=== PATIENT | male | born 1935 | race Caucasian/White ===

== ENCOUNTER 2016-12-05 19:03 | Day surgery (SDC) | payer MEDICARE ==
[~2016-12-05] VITALS: Ht 175.3 cm; Wt 71.7 kg
[~2016-12-05 19:03] MED LIST: ASPIRIN EC81 MG PO; BACTRIM DS TAB1 EACH PO; CEPHALEXIN500 MG PO; NORCO 5-325 TA1 EACH PO; PRILOSEC20 MG PO; ST. JOSEPH ASPI81 M1 PO; ST. JOSEPH ASPI81 MG PO; [UNRECOGNIZED DRUG - OTHER] PO
[2016-12-05] MEDS ORDERED: BENADRYL25 MG PO (19:13)
--- NOTE | 2016-12-05 22:47 | NUR ---
12/05/162246 Celestina Chow 2242 - PT ARRIVED TO PACU. MAINTAINING OWN AIRWAY. PT RESPONDS TO STIMULI
--- NOTE | 2016-12-06 00:59 | NUR ---
PT INSTRUCTIONS GIVEN AND SIGNED BY PT. SON AT BEDSIDE. ALL QUESTIONS AND CONCERNS ANSWERED. IV DC'D WITH CATHETER TIP INTACT, PRESSURE DRESSING APPLIED. PT TOLERATED WELL. PT VOIDED. PT AMBULATING INDEPENDENTLY. PT LEFT WITH SON WITH BELONGINGS IN HAND.
--- NOTE | 2016-12-06 09:57 | OR ---
[facility] [address] [place], [place] [address] Signed UPPER ENDOSCOPY REPORT DATE OF SERVICE: 12/05/2016 PREOPERATIVE DIAGNOSIS: Esophageal foreign body. POSTOPERATIVE DIAGNOSIS: Distal esophageal foreign body. Diffuse moderate gastritis. PROCEDURE: Esophagogastroduodenoscopy with CLOtest and biopsies of the antrum along with foreign body removal. ESTIMATED BLOOD LOSS: None. INDICATIONS: Todd is an 81-year-old gentleman who at least on 2 previous occasions had to have meat removed from his distal esophagus. He tells me I have done it once before. Tonight, they were eating beef stew, and he felt like a piece of beef was stuck in his distal esophagus. He finally came to emergency room for evaluation. I was asked by the ER doctor to come see him in the emergency room. I met with Todd and his son, and of course, we reviewed his current findings and the need for the upper endoscopy. He is quite familiar with the whole process. He understands there is a risk, including, but not limited to, gas bloating, crampy abdominal pain, bleeding and perforation requiring surgery, and missed diagnosis. He had expressed understanding and wished to proceed. PROCEDURE NOTE: Todd was taken into our endoscopy suite and placed in a supine semi-recumbent position. He was placed under general endotracheal tube anesthesia per our nurse assorter. The adult gastroscope was introduced into the esophagus, and we suctioned out the fluid column, and of course, at the GE junction was what appeared to be a piece of meat. We could not capture it with our basket, so I gave some gentle pressure with the scope, and it went through the GE junction and into the fundus of the stomach. The scope then passed into the stomach. We looked around, and he had moderate diffuse gastritis. I went ahead and took a biopsy of the antrum for CLOtest as well as pathologic review. Upon retroflexion of the scope, there was enough fluid around the GE junction. I really could not see it very well, but I could see the foreign body lying in the fundus. We suctioned out as much fluid as we could. The scope was then withdrawn up through the area of the GE junction, which as always was very inflamed, edematous, and was bleeding a little bit after removal of foreign body. The distal esophagus, of course, was irritated as well, the middle and upper esophagus not so much. After this, Electronically Signed By: LEO DODSON MD 12/06/16 0957 PATIENT NAME: TODD KRISHNA OPERATIVE REPORT DATE OF : 37 PHYSICIAN: LEO DODSON MD REPORT #: [id number] REPORT IS CONFIDENTIAL AND NOT TO BE RELEASED WITHOUT AUTHORIZATION [facility] [address] [place], [place] [address] Signed the gas was suctioned out, and the gastroscope removed. Todd tolerated the procedure quite well. RECOMMENDATIONS: I will see Todd back in my office in a week or two for followup. He needs to consider a barium swallow and maybe a repeat upper endoscopy in a few weeks, and he probably should consider either an H2 chris or proton pump inhibitor. MD HOLLAND Johnson/Will /[id number] Electronically Signed By: LEO DODSON MD 12/06/16 0957 PATIENT NAME: TODD KRISHNA OPERATIVE REPORT DATE OF : 37 PHYSICIAN: LEO DODSON MD REPORT #: [id number] REPORT IS CONFIDENTIAL AND NOT TO BE RELEASED WITHOUT AUTHORIZATION
--- NOTE | 2016-12-06 09:57 | HP ---
[facility] [address] [place], [place] [address] Signed DATE OF SERVICE: 12/05/2016 REFERRING PHYSICIANS: Dr. Tacos Bustos. CHIEF COMPLAINT: Esophageal foreign body. HISTORY OF PRESENT ILLNESS: Todd is an 81-year-old gentleman, who was eating beef stew earlier tonight and apparently feels like there was a piece stuck in his distal esophagus. He says when he drinks, the fluid comes back up. Apparently, it has happened to him before. He told me tonight that I helped him with upper endoscopy previously. When his throat would not clear, he came to the emergency room with his family. I was asked to see him as a general surgeon on-call. PAST MEDICAL HISTORY: Some type of abdominal cancer, prostate cancer, leukemia, and abdominal hernia/umbilical hernia. PAST SURGICAL HISTORY: Prostate surgery, cholecystectomy, and upper endoscopy. SOCIAL HISTORY: He does smoke, but he does not drink. He has no primary care provider. He prefers the [facility], Alyssa Muhammad is his daughter at [phone]. FAMILY HISTORY: Not reviewed. REVIEW OF SYSTEMS: I reviewed 10 systems with Todd and I believe with his son. No other major issues uncovered. ALLERGIES: None. MEDICATIONS: Aspirin, vitamin C, Prilosec, and Benadryl. PHYSICAL EXAMINATION: VITAL SIGNS: Blood pressure is 146/70, heart rate is 82, and respiratory rate is 18. His temperature is 98.2. He is 98% on room air. He is 5 feet 9 inches and 72 kg. GENERAL: Todd is an 81-year-old gentleman, who appears his stated age. He is at his ideal body weight. He has no shortness of breath or increased work of breathing. LUNGS: Clear to auscultation bilaterally. Electronically Signed By: LEO DODSON MD 12/06/16 0957 PATIENT NAME: TODD KRISHNA HISTORY AND PHYSICAL DATE OF : 37 PHYSICIAN: LEO DODSON MD REPORT #: [id number] REPORT IS CONFIDENTIAL AND NOT TO BE RELEASED WITHOUT AUTHORIZATION [facility] [address] [place], [place] [address] Signed HEART: Regular rate and rhythm. ABDOMEN: Soft and flat. He clearly has a moderate sized incarcerated umbilical hernia. LABORATORY DATA: Pending. ASSESSMENT AND PLAN: Todd is an 81-year-old gentleman, who presents with an esophageal foreign body. He has been through this previously. We are going to call our crew in including an anesthesia provider and will perform an upper endoscopy and clear any foreign body that we uncover. He has expressed understanding and wishes to proceed. MD HOLLAND Johnson/Modl /[id number] cc: Leo Dodson MD Electronically Signed By: LEO DODSON MD 12/06/16 0957 PATIENT NAME: TODD KRISHNA HISTORY AND PHYSICAL DATE OF : 37 PHYSICIAN: LEO DODSON MD REPORT #: [id number] REPORT IS CONFIDENTIAL AND NOT TO BE RELEASED WITHOUT AUTHORIZATION
--- NOTE | 2016-12-06 19:00 | EKG ---
[facility] [address] [facility] [place], [place] [address] Signed Sinus rhythm with 1st degree AV block with frequent premature ventricular complexes Inferior infarct , age undetermined Abnormal ECG No previous ECGs available Confirmed by GRUPO LOZANO MD ([id number]) on 12/06/2016 7:00:11 PM Electronically Signed By: GRUPO LOZANO MD 12/06/16 1900 PATIENT NAME: TODD KRISHNAMaryam Electrocardiogram DATE OF : 37 PHYSICIAN: GRUPO LOZANO MD REPORT #: [id number] REPORT IS CONFIDENTIAL AND NOT TO BE RELEASED WITHOUT AUTHORIZATION
== END 2016-12-06 00:50 | disposition home or self-care (01) ==
LOC: ED 19:03 → DS 19:05 → DSVR 19:05 → DS 12-06 00:50
PROVIDERS: Colon & Rectal Surgery
PROC: 0DB68ZX Excision of Stomach, Via Natural or Artificial Opening Endoscopic, Diagnostic (ICD-10-PCS; 2016-12-05)
PROC: 0DC58ZZ Extirpation of Matter from Esophagus, Via Natural or Artificial Opening Endoscopic (ICD-10-PCS; principal; 2016-12-05 22:45)
DX: K29.50 Unspecified chronic gastritis without bleeding (principal); T18.128A Food in esophagus causing other injury, initial encounter; F17.210 Nicotine dependence, cigarettes, uncomplicated; Z85.46 Personal history of malignant neoplasm of prostate; Z85.6 Personal history of leukemia; Z90.49 Acquired absence of other specified parts of digestive tract; Z98.890 Other specified postprocedural states; Z79.899 Other long term (current) drug therapy; Z79.82 Long term (current) use of aspirin
CPT/HCPCS: 00740; 80053; 85025; 86677; 88305; 88342; 93005; 93010; 96361; 96372; 96374; 99285; J0330; J1200; J1610; J2704; J7030; J7120

== ENCOUNTER 2022-05-12 00:35 | Inpatient (IN) | payer MEDICARE ==
[~2022-05-12] VITALS: Ht 175.3 cm; Wt 66.5 kg
[~2022-05-12 00:35] MED LIST changes: +ACEROLA C500 MG PO; +BENADRYL25 MG PO; +PRILOSEC OTC20 MG PO; -PRILOSEC20 MG PO; -[UNRECOGNIZED DRUG - OTHER] PO
--- NOTE | 2022-05-12 04:45 | NUR ---
PT ARRIVES TO UNIT FROM ED. PT IS NONVERBAL ATT. RESPIRATIONS EVEN AND IRREGULAR. SPO2 92-97% ON 3L NC. CROCKETT CATHETER INTACT AND DRAINING. PT PULLED IV TO R AC. FAMILY AT BEDSIDE.
--- NOTE | 2022-05-12 06:24 | NUR ---
ROUNDED ON PT. PT FAMILY REMAINS AT BEDSIDE. READJUSTED PT IN BED. CROCKETT BAG EMPTYIED. CALL LIGHT WITHIN REACH.
--- NOTE | 2022-05-12 07:30 | NUR ---
ASSUMING CARE OF PT. RECEIVED REPORT FROM BRADLEY MALIK. PT SITTING UP IN BED WITH SON AT BEDSIDE. CALL LIGHT WITHIN REACH AND BEDRAIL AND BED ALARM ON FOR SAFETY. PT MOUTH DRY BUT REFUSES ORAL CARE AT THIS TIME. PT UNWILLING TO ALLOW FOR PUPIL ASSESSMENT, GRABBING RN ARM LIGHT IS BROUGHT FORWARD. PT SON STATES PT "HATES HOSPITALS AND STAFF AND PROBABLY WONT LISTEN".
--- NOTE | 2022-05-12 08:22 | NUR ---
ATTEMPTED NIH SCALE ON PT DR VEGA DISCUSSED POTENTIAL STROKE WITH FAMILY. PT HAS EXPRESSIVE APHASIA. PT ABLE TO MOVE ALL FOUR EXTREMITIES INDEPENDTLY AND SITTING UP IN BED BY HIMSELF WITH SATURATION ON ROOM AIR AND VS WNL. PT LUNG SOUNDS DIM. BOWEL SOUNDS ACTIVE. PT UNABLE TO FOLLOW INSTRUCTIONS TO DRINK WATER OR USE MOUTH SWAB FOR DRY MOUTH, GRABBING NURSES HAND MOUTH SWAB OFFERED. PT UNABLE TO FOLLOW INSTRUCTIONS TO COMPLETE NIH. AWARE.
--- NOTE | 2022-05-12 08:55 | NUR ---
UNABLE TO COMPLETE BMAT ASSESSMENT PT IS UNABLE TO FOLLOW INSTRUCTIONS.
--- NOTE | 2022-05-12 09:19 | NUR ---
PT RESTING IN BED WITH CALL LIGHT WITHIN REACH, BED ALARM AND RAILING UP FOR SAFETY. ABX STOPPED AND IV SALINE LOCKED. ENCOURAGED PT TO DRINK WATER, PT DECLINED. ADMISSION ORDERS PLACED BY DR VEGA.
--- NOTE | 2022-05-12 10:24 | NUR ---
PT REMOVED PULSE OXIMETER. THIS RN IN ROOM, REPLACED OXIMETER AND INFORMED PT OF IMPORTANCE OF LEAVING IN PLACE.
--- NOTE | 2022-05-12 11:20 | NUR ---
MED REC COMPLETE
--- NOTE | 2022-05-12 12:07 | NUR ---
LUNCH BROUGHT IN TO PT. PT LEANING FORWARD, ASLEEP. ATTEMPTED TO WAKE PT AND HAVE HIM SIT UP BUT PT GOANED AND PUSHED AGAINST THIS RN TO REMAIN IN LEANING POSITION. PT SON REPORTS PT DOES NOT WAKE WELL "WHEN NAPPING". FOOD LEFT AT BEDSIDE, WILL REATTEMPT TO WAKE PT AND REPOSITION SHORTLY.
--- NOTE | 2022-05-12 12:21 | NUR ---
PT ROCKING BACK AND FORTH IN BED. PT SON JONATHAN ASKED IF THE MOEVEMENTS ARE NORMAL OR IF THIS IS SOMETHING NEW. PT SON STATES PT DOES SAME MOVEMENTS AT HOME WHILE SITTING IN CHAIR OR BED AT HOME WHILE LEANING FORWARD. ATTEMPTED TO ASSIST PT IN SEATED POSITION TO EAT AND PT PUSHED AGAINST RN HANDS TO REMAIN IN LEANING POSITION. WILL ATTEMPT AGAIN.
--- NOTE | 2022-05-12 13:28 | NUR ---
ATTEMPTED TO GIVE PT ORAL ASA. PT SHAKING HEAD BACK AND FORTH, GRABBING AT NURSES HANDS TRYING TO SQUEEZE ARMS AND HIT AT STAFF. PT REFUSING WATER AND APPLESAUCE, UNABLE TO GET PT TO TAKE ANYTHING ORALLY AT THIS TIME. PT SITTING UP IN BED LOOKING AROUND. PT CONTINUES TO HAVE EXPRESSIVE APHASIA WHEN SPEAKING. AT TIMES, PT JUST MAKING NOISES OR NOT RESPONDING TO STAFF DIRECTIONS/ QUESTIONS AT ALL.
--- NOTE | 2022-05-12 14:22 | NUR ---
PT SITTING UP IN BED IN ROOM. PT HAD 21 BEATS OF V-TACH. BLOOD PRESSURE WITHIN NORMAL LIMITS. PT UNAWARE OF ARRYTHMIA, JUST STATING "YEAH" TO ANY QUESTION ASKED, CONTINUES TO HAVE EXPRESSIVE APHASIA. SON AT BEDSIDE.
--- NOTE | 2022-05-12 14:47 | NUR ---
ST EVALUATION DEFERRED AT THIS TIME, PER NSG REQUEST. EVALUATION TO BE COMPLETED WHEN PATIENT IS ABLE TO TOLERATE ASSESSMENT.
--- NOTE | 2022-05-12 14:55 | NUR ---
REPORT GIVEN TO SRINATH MALIK.
--- NOTE | 2022-05-12 15:10 | NUR ---
PT BOUGHT TO [employer], RM 110. SON AT BEDSIDE. EXPLAINED USE OF CALL LIGHT TO BOTH SON AND PT, WITHIN REACH.
--- NOTE | 2022-05-12 16:00 | NUR ---
In and spoke with pts son, Diego. Pt is awake and attempts to speak. He asks if I am ok. Son states they live in a house with a ramp. Pt does not take any medication other than asa. He does not use any DME. He is retired with SSI and a pension. Son is disabled and on dialysis and his sister is amputee. Both live with their dad.l Son states they grocery shop. Pt can leave the home and drive, but does not choose to do so. He does not see DrPolos or have a pcp and does not want one. Son states if I schedule him with a DR. he will not go. They deny any needs at this time.
--- NOTE | 2022-05-12 16:15 | NUR ---
ASSESSMENT COMPLETE. PT BECOMES COMBATIVE WITH MOVEMENT. MARSHALL, BUT HEARS BETTER WITH LEFT EAR. UNABLE TO ASSESS CMS. PT IS ALERT. PT WAS ABLE TO ASK "ARE YOU ALRIGHT? IS EVERYTHING ALRIGHT?" AND WOULD CONTIUNE TO THANK THIS RN. LUNGS SOUNDS DIMINISHED IN ALL. REDDENED COCCYX, ALLYVN PLACED. SON AT BEDSIDE. CALL LIGHT WITHIN REACH. BED ALARM ON.
--- NOTE | 2022-05-12 17:40 | NUR ---
pt laying in bed, awake. call light within reach. bed alarm on.
--- NOTE | 2022-05-12 17:55 | NUR ---
PT RESTING IN BED, AWAKE. ATTEMPTED ORAL CARE, PT MOVES HEAD AND SAYS "NO". PT CONTINOUSLY SAYING "I LOVE YOU". CALL LIGHT WITHIN REACH. BED ALARM ON.
--- NOTE | 2022-05-12 18:44 | EKG ---
[facility] [address] [place] [address] Signed Poor data quality, interpretation may be adversely affected Undetermined rhythm Inferior infarct , possibly acute T wave abnormality, consider lateral ischemia ACUTE ID / STEMI Consider right ventricular involvement in acute inferior infarct Abnormal ECG Repeat EKG performed Confirmed by Zoe Vega MD () on 05/12/2022 6:43:56 PM Electronically Signed By: ZOE VEGA MD 05/12/22 1844 PATIENT NAME: TODD KRISHNA Electrocardiogram DATE OF : 37 PHYSICIAN: ZOE VEGA MD REPORT #: [id number] REPORT IS CONFIDENTIAL AND NOT TO BE RELEASED WITHOUT AUTHORIZATION
--- NOTE | 2022-05-12 18:45 | EKG ---
[facility] [address] [facility] [place] [address] Signed Sinus arrhythmia with premature ventricular or aberrantly conducted complexes Nonspecific intraventricular block Inferior infarct , age undetermined Abnormal ECG Confirmed by Zoe Vega MD () on 05/12/2022 6:45:46 PM Electronically Signed By: ZOE VEGA MD 05/12/22 1845 PATIENT NAME: TODD KRISHNA Electrocardiogram DATE OF : 37 PHYSICIAN: ZOE VEGA MD REPORT #: [id number] REPORT IS CONFIDENTIAL AND NOT TO BE RELEASED WITHOUT AUTHORIZATION
--- NOTE | 2022-05-12 19:25 | NUR ---
REPORT RECEIVED FROM HELENA NESS. PT SITTING UP IN BED. RR EVEN AND UNLABORED. NO NEEDS IDENTIFIED AT THIS TIME. CALL LIGHT IN REACH. BED ALARM ON.
--- NOTE | 2022-05-12 21:20 | NUR ---
IN ROOM HELENA MILLER INFORMED THIS RN THAT THE PT HAS PULLED OUT ONE OF HIS IVs. IV IN RIGHT FOREARM WAS PULLED OUT BY PT. LEFT WRIST IV CLAVE IS RIPPED OFF. HELENA GUARDADO IN TO ASSIST WITH LEFT WRIST IV. LEFT WRIST IV INFILTRATED. IV REMOVED. PT PULLING HANDS AWAY FROM HELENA GUARDADO WHILE ATTEMPTING TO REMOVE TAPE FROM PTs ARM. ASSESSMENT COMPLETE. LUNG SOUNDS CRACKLES IN DAE AND LLL. CRACKLES IN RLL. CLEAR IN RUL. HEART TONES DISTANT. BOWEL TONES ACTIVE. PT SITTING UP IN BED WITH EYES CLOSED. RR EVEN, BUT LABORED. HELENA MILLER NOTIFIED THIS RN THAT HELENA MILLER CALLED DR. VEGA TO NOTIFY OF PT PULLING IV. VITALS COMPLETE. NO OTHER NEEDS FROM THIS RN AT THIS TIME. AWAITING NEW ORDERS.
--- NOTE | 2022-05-12 22:00 | NUR ---
pt SEEN IN BED, AWAKE AND ATTEMPTING TO GET OOB. BED ALARM REMAINS ON. pt PULLED IV. REMAINS RESTLESS AND AGITATED IN BED. PRIMARY RN ALLYSON MADE AWARE AND NOW IN ROOM TO ATTEMPT TO REORIENT AND ASSESS pt. THIS RN CALLED DR VEGA AND UPDATED HIM ON pt STATUS. DR VEGA TO PLACE ORDERS FOR BOTH ORAL AND IM MEDICATION TO AID IN AGITATION. PER MD, TRY ORAL SEROQUEL FIRST. pt NPO, DISCUSSED WITH MD. PER SILVIA, SPEECH THERAPY TO COME AND ASSESS pt BUT WAS UNABLE TO GET DONE TODAY. PER SILVIA, OKAY TO ATTEMPT BESIDE SWALLOW EVAL AND PROCEED WITH ORAL SEROQUEL. IF SEROQUEL UNEFFECTIVE OR pt REFUSES OKAY TO PROCEED WITH HALDOL OPTION, SILVIA TO PLACE ORDERS. WILL ATTEMPT TO PLACE NEW IV BY BUSINESS INFO CONSULTANT ONCE pt SETTLES DOWN AND IS CALMER. WILL CONTINUE TO MONITOR. PRIMARY HELENA VALADEZ AND HELENA GUARDADO IN ROOM TO COMPLETE BEDSIDE SWALLOW EVAL AND GIVE MEDS-SEE EMAR.
--- NOTE | 2022-05-12 22:15 | NUR ---
DR ORDERED PO MEDICATION, NUCLEAR MEDICINE SPECIALIST CONFIRMED WITH DR ON PHONE AFTER PT PULLED OUT HIS IV OK TO ATTEMPT CAREFULLY PO MEDS WITH THICKENED PUDDING. THIS RN PROVIDED SM SPOONFULL OF PUDDING PT SMALLOWED WELL, 2ND SPOONFUL WITH MED PT SET IN HIM MOUTH AND REFUSED TO SWALLOW INSPITE OF HEAD TILT, CHIN TUCK AND FACIAL MASSAGE. FINALLY PT SWALLOWED MEDS THAT WERE CRUSHED IN SPOONFUL OF PUDDING. PT CONTINUE TO REFUSED TO SWALLOW, MOUTH AT BASELINE CRUSTED, DRY AND CRACKED - ATTEMPTED ORAL CARE WITH KIT AND PT REFUSED, POOR SWALLOW, AND POOLS SALIVA - CONT. NPO STATUS - DISCUSSED WITH NUCLEAR MEDICINE SPECIALIST. PT IS MOUTH BREATHER, DTG CALLED EARLIER AND TALKED WITH THIS RN AND STATED THAT HE IS MENTALLY AT BASELINE - HAS KNOWN DEMENTIA, AND HIS SPEECH IS AT BASELINE - THAT THEY ARE USED TO HIS MUMBLES AND GRUMBLES. DTG REPORTS THAT HE HAS REFUSED ORAL CARE AT HOME FOR YEARS, AND LIKES TO DRINK A&W SODA. ATTEMPTED TO ORAL SUCTION PT FOR SAFETY AND HE FOUGHT AND REFUSED - HOB UP 90 DEGREES AT ALL TIMES,
--- NOTE | 2022-05-12 22:25 | NUR ---
IN WITH HELENA GUARDADO TO ADMINISTER MEDICATION, SEE MAR. GUARDADO, TO PERFORM SWALLOW EVAL. SEE HELENA GUARDADO NOTE. WHILE HELENA GUARDADO ATTEMPTS TO PERFORM ORAL CARE PT STARTS THROWING HANDS AROUND AND YELLING "NO." NO ORAL CARE WAS ABLE TO BE PERFORMED. PT SITTING UP IN HIGH FOWLERS WITH BED ALARM ON. CALL LIGHT IN REACH.
--- NOTE | 2022-05-13 00:45 | NUR ---
WITH HELP FROM RN REMY, PRIMARY RN ALLYSON, HELENA GUARDADO, AND SPECIALIZED LANGUAGE INSTRUCTOR ANNELISE, NEW IV PLACED BY VENDING TECHNICIAN ANNELISE. pt TOLERATED POORLY AND REQUIRED DISTRATION AND BOTH ORAL AND IM AGITATION MEDICATION. NEW IV NOW IN PLACE, 20G TO BACK OF LEFT FOREARM. IV ABX INFUSING DIRECTED. BED ALARM RESUMED AND CALL LIGHT IN REACH. pt REMAINS DISORIENTED AND INTERMITTENTLY ATTEMPTS TO GET OOB. WILL CONTINUE TO MONITOR, pt REMAINS IN VIEW OF RN STATION.
--- NOTE | 2022-05-13 01:42 | NUR ---
IN TO ADMINISTER MEDICATION, SEE MAR. PAUL RN AND HELENA PULIDO IN ROOM TO ASSIST. PT CONTINUES TO REACH FOR IV SITE. IV SITE WRAPPED WITH COBAN TO PREVENT PT FROM PULLING AT IV. PT CONTINUES TO REACH FOR IV. IV INFILTRATED. IV REMOVED AND PRESSURE APPLIED TO AREA. PT REACHES FOR CROCKETT CATHETER. REDIRECTED PTs HANDS. PT RESTS WITH HANDS OVER CHEST AND THEN AGAIN REACHES FOR CROCKETT CATHETER. THIS RN LEAVES ROOM TO CALL TELE-PHARMACY. HELENA MILLER AND HELENA PULIDO STILL IN ROOM.
--- NOTE | 2022-05-13 01:58 | NUR ---
pt REMAINS AWAKE AND RESTLESS IN BED, NOTIFIED BY PRIMARY HELENA VALADEZ THAT pt PULLED ON CROCKETT, STAT LOCK PULLED OFF. PER PRIMARY RN, CROCKETT REMAINS WNL. UPDATED DR VEGA ABOUT pt's CONTINUED RESTLESSNESS AND AGITATION, TELEPHONE ORDER READ BACK FOR 1MG IV ATIVAN [id number]. PRIMARY HELENA VALADEZ NOW IN ROOM FOR MED ADMINISTRATION-SEE EMAR. DR VEGA ALSO UPDATED ON MEDS GIVEN FOR AGITATION AND OF NEW IV. WILL CONTINUE TO MONITOR.
--- NOTE | 2022-05-13 03:05 | NUR ---
THIS RN CALLED TELE-PHARMACY ABOUT PTs INFILTRATED IV. TELE-PHARMACY STATES TO "APPLY COLD PACK FOR 10-20 MINUTES 4 TIMES A DAY FOR 3 DAYS OR UNTIL SYMPTOMS RESOLVE." VERIFIED WITH REPEAT BACK.
--- NOTE | 2022-05-13 03:05 | NUR ---
pt REMAINS RESTLESS AND VERY AGITATED TO BUSINESS SERVICES TECH. STAFF ATTEMPT TO ALLOW pt TO REST BUT SOON AFTER LEAVING pt ROOM, pt BEGINS TO MESS WITH CROCKETT CATHETER, FOR pt SAFETY, pt HAS BEEN 1:1 TO ENSURE CATHTER REMAINS IN PLACE. MULTIPLE ATTEMPTS TO REDIRECT AND DISTRACT pt UNSUCCESSFUL. pt ATTEMPTS TO SWAT AT AND HIT STAFF WHEN IN REACH OF pt. pt THEN PULLED OFF GOWN AND TELEMETERY. CCU AWARE. pt CONTINUES TO MUMBLE AND YELL VIA GARBLED SPEECH TO BUSINESS SERVICES TECH. PRIMARY RN ALLYSON ON PHONE WITH DR VEGA DISCUSSING POC.
--- NOTE | 2022-05-13 03:06 | NUR ---
HELENA MILLER IN ROOM. THIS RN ATTEMPTED TO PLACE COLD PACK TO INFILTRATED SITE. PT REMOVES COLD PACK. PT REMOVES GOWN AND PULLS TELE LEADS OFF. PT CONTINUES TO REACH FOR CROCKETT CATHETER. HELENA MILLER OUT OF ROOM. PT CONTINUES TO REACH FOR CROCKETT CATHETER. REDIRECTED PTs HAND TO CHEST. KAREN GOMEZ IN TO SIT 1:1 WITH PT AND REDIRECT PTs HAND NEEDED.
--- NOTE | 2022-05-13 03:06 | NUR ---
ASSESSMENT COMPLETE. LUNG SOUNDS CLEAR IN RUL. CRACKLES IN RLL, LLL, AND DAE. BOWEL TONES ACTIVE. LUMP NOTED TO UMBILICUS WITH HERNIA LIKE APPERANCE. PT RESTING IN BED WITH EYES CLOSED WITH HANDS FOLDED OVER CHEST. PT REMOVED GOWN. NO OTHER NEEDS IDENTIFIED AT THIS TIME. CALL LIGHT IN REACH. BED ALARM ON.
--- NOTE | 2022-05-13 03:08 | NUR ---
THIS RN CALLED DR. VEGA TO UPDATE ON PTs IV INFILTRATING, REACHING FOR CROCKETT CATHETER, AND REMOVING TELE LEADS. NEW ORDERS RECEIVED VERIFIED WITH READ BACK.
--- NOTE | 2022-05-13 03:16 | NUR ---
BON Juárez AT THIS TIME. PT RESTING IN BED. KAREN GOMEZ 1:1 WITH PT UNTIL PT RESTS. NO OTHER NEEDS FROM THIS RN AT THIS TIME. CALL LIGHT IN REACH. BED ALARM ON.
--- NOTE | 2022-05-13 03:32 | NUR ---
at pt bedside for some time after rn discountinued palacios cath, pt remaining in bed at this time, mumbling to self, reaching in to the air, bed alarm set
--- NOTE | 2022-05-13 04:24 | NUR ---
ROUNDED ON pt, pt RESTING IN BED WITH EYES CLOSED. ASPIRATION PRECAUTIONS IN PLACE AND BED ALARM REMAINS ON FOR SAFETY, CALL LIGHT IN REACH. EYES CLOSED, pt ON RA. RR EVEN AND UNLABORED, NO DISTRESS NOTED. pt APPEARS CALM AND RELAXED. WILL CONTINUE TO MONITOR.
--- NOTE | 2022-05-13 06:30 | NUR ---
pt resting quietly in bed, eyes closed. on ra. rr even and unlabored, no distress noted. lab to return in 1-1.5hr to complete am labs as to allow pt to rest at this time, pt had stressful night and was heavily agitated during the shift. currently calm, bed alarm remains on for safety. call light in reach.
--- NOTE | 2022-05-13 06:47 | NUR ---
IN TO ROUND ON PT. PER HELENA MILLER TO NOT GET BP, SPOT CHECK AND GET TEMPERATURE TO LET PT REST. TEMPERATURE, O2 SATS, RESPIRATIONS AND PULSE COMPLETE. PT INCONTINENT OF STOOL. KAREN GOMEZ IN TO ASSIST WITH NAOMIE CARE. NEW ATTENDS IN PLACE. NEW LINENS PLACED. PT CONTINUES TO GRAB AND SQUEEZE WHEN ASSISTING WITH CARES. PT NOW RESTING IN BED ON RIGHT SIDE. RR EVEN, BUT LABORED. NEW GOWN PLACED, WARM BLANKET PROVIDED. NO OTHER NEEDS IDENTIFIED AT THIS TIME. CALL LIGHT IN REACH. BED ALARM ON.
--- NOTE | 2022-05-13 07:00 | NUR ---
REC'D BEDSIDE REPORT FROM NIGHT NURSE. PT. SLEEPING. EASY TO AROUSE. NAD, NO C/O. WILL SPEAK TO ATTENDING REGARDING PT REFUSAL OF ALL INTERVENTIONS ON DIRECT SUPPORT PROFESSIONAL HOME HEALTH, REPORTED BY NIGHT PRIMARY NURSE AND CHARGE NURSE. WILL CONTINUE TO MONITOR AND FOLLOW POC.
--- NOTE | 2022-05-13 18:36 | NUR ---
PT BROKE EXTENSION TUBING ON IV. REPLACED TUBING AND DRESSING. COVERED IV AREA WITH COBAN. PT AGREED NOT TO BOTHER IV. BED LINENS CHANGED. SON AND GRANDSON AT BEDSIDE FOR THE AFTERNOON. PT PASSED BEDSIDE SWALLOW STUDY AND PROVIDER REORDERED PATIENT'S DIET. ORDERED DINNER BUT PT APPETITE IS STILL LOW. PT STILL WITH INCONINENCE, BUT ALSO VERBALIZING NEED TO VOID. WILL CONTINUE TO FOLLOW POC.
--- NOTE | 2022-05-13 19:00 | NUR ---
REPORT RECEIVED FROM HELENA PHILLIPS. PT SITTING UP IN BED. RR EVEN AND UNLABORED. NO NEEDS IDENTIFIED AT THIS TIME. CALL LIGHT IN REACH. BED ALARM ON.
--- NOTE | 2022-05-13 20:15 | NUR ---
BED ALARM SET OFF, PT GETTING OOB, PT UNABLE TO CLARIFY NEEDS, STOOD PT AT BEDSIDE, 1PA FWW, OFFER URINAL, PT DID NOT WANT TO USE WANT URINAL, PT GOT BACK IN BED, WANTED COVERS, PROVIDED, BED ALARM RESUMED, IV PUMP ALARMING, RN INFORMED
--- NOTE | 2022-05-13 21:03 | NUR ---
IN TO ADMINISTER MEDICATIONS, SEE MAR. IV FLUSHED WNL. PT COMPLAINS OF HEADACHE AND POINTS TO FRONT AND LEFT SIDE OF HEAD, PRN TYLENOL ADMINISTERED, SEE MAR. ASSESSMENT COMPLETE. LUNG SOUNDS COARS CRACKLES IN DAE, LLL AND RLL. CLEAR RUL. BOWEL TONES ACTIVE. HEART TONES DISTANT. NO OTHER NEEDS IDENTIFIED AT THIS TIME. CALL LIGHT IN REACH. BED ALARM ON.
--- NOTE | 2022-05-13 21:52 | NUR ---
IN TO ADMINISTER MEDICATION, SEE MAR. IV FLUSHES WNL. IV INFUSING WNL. PT SITTING UP IN BED. RR EVEN AND UNLABORED. NO OTHER NEEDS IDENTIFIED AT THIS TIME. CALL LIGHT IN REACH. BED ALARM ON.
--- NOTE | 2022-05-13 22:20 | NUR ---
BED ALARM SET OFF, PT SITTING UP IN BED, ASKED IF PT NEEDS ANYTHING, NO NEEDS STATED, PT ASKING IF THIS LAN ENGINEER WAS OKAY, ALARM REMAINS IN PLACE
--- NOTE | 2022-05-14 00:05 | NUR ---
IN TO ROUND ON PT. PT SITTING UP IN BED. RR EVEN AND UNLABORED. IV INFUSING WNL. PT LAYING IN SEMI FOWLERS AND COVERED WITH BLANKETS. NO OTHER NEEDS IDENTIFIED AT THIS TIME. CALL LIGHT IN REACH. BED ALARM ON.
--- NOTE | 2022-05-14 01:53 | NUR ---
ASSESSMENT COMPLETE. LUNG SOUNDS EXPIRATORY WHEEZE IN RUL, RLL, DAE AND LLL. DIMINISHED IN LLL AND RLL. BOWEL TONES ACTIVE. BM NOTED, PT INCONTINENT OF URINE. KAREN GOMEZ IN TO ASSIST WITH NAOMIE CARE. NEW ATTENDS IN PLACE. GOWN PLACED BACK ON PT PT HAS TAKEN GOWN OFF PREVIOUSLY. IV INFUSING WNL. NO OTHER NEEDS IDENTIFIED AT THIS TIME. CALL LIGHT IN REACH. BED ALARM ON.
--- NOTE | 2022-05-14 04:10 | NUR ---
IN ROOM TO ROUND ON PT. PT SITTING UP IN BED. COUGHING NOTED. PT STATES "CAN YOU TURN THAT OFF" POINTING AT THE TELEVISION. TELEVISION TURNED OFF. PT THANKS THIS RN FOR TURNING OFF TELEVISION. STAT LOCK REMOVED FROM RIGHT THIGH. PT REPORTS NO OTHER NEEDS AT THIS TIME. CALL LIGHT IN REACH. BED ALARM ON.
--- NOTE | 2022-05-14 05:30 | NUR ---
IN KAREN GOMEZ IN ROOM WITH PT. KAREN GOMEZ REQUESTING ASSISTANCE WITH PERICARE AND LINEN CHANGE. PT INSISTANT ON STANDING WITH FWW WHILE LINENS ARE CHANGED. PT STANDING WITH FWW HAS A SLIGHT WOBBLE. THIS RN STANDING WITH PT WHILE KAREN GOMEZ CHANGING LINENS. PT ATTENDS CHANGED. PT SITTING BACK IN BED. LAB IN TO DRAW BLOOD. PT TOLERATED WELL. VITALS AND I&Os COMPLETE. NO OTHER NEEDS IDENTIFIED AT THIS TIME. CALL LIGHT IN REACH. BED ALARM ON. GOWN PLACED BACK ON PT PT REMOVED GOWN PREVIOUSLY.
--- NOTE | 2022-05-14 07:18 | NUR ---
REPORT RECEIVED FROM ALLYSON MALIK, ALL QUESTIONS ANSWERED. PT SITTING UP IN BED, DENIES NEEDS AT THIS TIME. CALL LIGHT IN REACH, BED ALARM ON.
--- NOTE | 2022-05-14 07:37 | NUR ---
PT AWAKE IN BED. KLEENEX GIVEN. WARM CLOTH FOR FACE, WHITE BOARD UPDATED. NO FURTHER NEEDS AT THIS TIME. CALL LIGHT IN REACH.
--- NOTE | 2022-05-14 10:27 | NUR ---
MORNING ASSESSMENT COMPLETE. PT SITTING UP IN BED. ANSWERS QUESTIONS APPROPRIATELY, DISORIENTED TO PLACE AND TIME. IV PATENT. DR VEGA INTO TO SEE PT. PT DENIES PAIN OR FURTHER NEEDS AT THIS TIME. CALL LIGHT IN REACH. BED ALARM ON.
--- NOTE | 2022-05-14 13:22 | NUR ---
PT LYING AWAKE IN BED. ENCOURAGED TO DRINK FLUIDS. ASKED PT IF HE HAD OR NEEDED TO URINATED. PT STATES HE "WILL TAKE CARE OF IT" ATTEMPTED TO CHECK BRIEF. PT SWATTED HANDS AT ATTEMPT, UNABLE TO CHECK BRIEF.
--- NOTE | 2022-05-14 14:12 | NUR ---
PT ATTEMPTING TO GET OUT OF BED TO USE RESTROOM. BEDSIDE COMMODE PLACED NEXT TO BED. PT UP ONE PERSON ASSIST WITH FWW TO COMMODE AND BACK TO BED. PT TOLERATED WELL. FOLLOWED INSTRUCTION. INCONTINENT IN BRIEF, CHANGED AND NAOMIE CARE PROVIDE. PT ENCOURAGED TO DRINK FLUIDS. DENIES FURTHER NEEDS. CALL LIGHT IN REACH. BED ALARM ON
--- NOTE | 2022-05-14 19:03 | NUR ---
REPORT RECEIVED FROM HELENA HERNANDEZ. PT RESTING IN BED ON RIGHT SIDE. RR EVEN AND UNLABORED. NO NEEDS IDENTIFIED AT THIS TIME. CALL LIGHT IN REACH. BED ALARM ON.
--- NOTE | 2022-05-14 21:25 | NUR ---
IN TO ADMINISTER MEDICATION, SEE MAR. IV FLUSHED WNL. IV INFUSING WNL. ASSESSMENT COMPLETE. LUNG SOUNDS EXPIRATORY WHEEZE THROUGHOUT ALL LOBES. RHONCHI IN LLL. HEART TONES DISTANT. PT SITTING UP IN BED. RR EVEN, BUT LABORED. PRN MEDICATION ADMINISTERED, SEE MAR. NO OTHER NEEDS IDENTIFIED AT THIS TIME. CALL LIGHT IN REACH. BED ALARM ON.
--- NOTE | 2022-05-14 22:43 | NUR ---
IV ABX COMPLETE. IV FLUSHES WNL. SECOND ABX STARTED, SEE MAR. IV INFUSING WNL. PT RESTING IN BED ON LEFT SIDE. RR EVEN AND UNLABORED. WARM BLANKET PROVIDED. NO OTHER NEEDS IDENTIFIED AT THIS TIME. CALL LIGHT IN REACH. BED ALARM ON.
--- NOTE | 2022-05-15 01:15 | NUR ---
IN ROOM BED ALARM ALARMING, RESOLVED. IV PUMP ALARMING, RESOLVED. PT RESTING ON RIGHT SIDE. BLANKETS PLACED OVER PT. IV INFUSING WNL. NO OTHER NEEDS IDENTIFIED AT THIS TIME. CALL LIGHT IN REACH. BED ALARM ON.
--- NOTE | 2022-05-15 04:30 | NUR ---
PT AGITATED. WANTS TO GET OUT OF BED. NOT REDIRECTABLE. ALSO RR27. O2 99% ON RA. WILL MEDICATE PER MAR.
--- NOTE | 2022-05-15 05:00 | NUR ---
PT IS RELAXED, LAYING IN BED WITH EYES CLOSED. PT RR22. O2 99% ON RA. WILL CONTINUE TO MONITOR AND FOLLOW POC.
--- NOTE | 2022-05-15 06:29 | NUR ---
PT SLEEPING COMFORTABLY IN BED. NO ACUTE EVENTS OVERNIGHT. NO C/O. WILL CONTINUE TO MONITOR AND FOLLOW POC.
--- NOTE | 2022-05-15 07:29 | NUR ---
REPORT FROM [facility].
--- NOTE | 2022-05-15 09:07 | NUR ---
PATIENT ASSESSMENT DONE. PATIENT INCONTINENT OF URINE AND COMBATIVE WHILE BEING CHANGED. PATIENT HAS EYES CLOSED AND WILL NOT OPEN THEM. LUNGS ARE PRIMARILY CLEAR IN UPPER GALEANA, DIM IN THE BASES WITH IN/EX WHEEZE IN RLL. ATTEMPTED TO GIVE MORNING ASPIRIN AND PATIENT SPIT IT OUT. OT IN ROOM AND ATTEMPTING TO WORK WITH PATIENT. BED ALARM TO BE PLACED.
--- NOTE | 2022-05-15 09:11 | NUR ---
MRI CALLED RE: HEAD MRI, THEY KNOW PATIENT IS COMBATIVE.
--- NOTE | 2022-05-15 11:05 | NUR ---
PATIENT IS SLEEPING IN BED, REGULAR RESPIRATIONS NOTED.
--- NOTE | 2022-05-15 12:30 | NUR ---
Attempted to speak with pt. He will not answer or look at this RN. Attempted to call pts son, message states he is unavailable and no way to leave a message. Would like to check with family if they will be able to care for this pt at home.
--- NOTE | 2022-05-15 12:52 | NUR ---
BEFORE I WENT TO LUNCH DONAVON (NURSE) AND I CHANGED HIM AND ALSO CHANGED THE BED LINENS. PUT BED ALARM BACK ON.
--- NOTE | 2022-05-15 14:42 | NUR ---
THE NURSES AND I CHANGED PATIENT'S TAPED ATTEND. ALSO PUT CREAM ON HIS SCROTUM.
--- NOTE | 2022-05-15 15:08 | NUR ---
BED ALARM HIS ON.
--- NOTE | 2022-05-15 18:30 | NUR ---
NURSE AND I CHANGED PATIENT'S TAPED ATTEND.
--- NOTE | 2022-05-15 19:55 | NUR ---
REC'D BEDSIDE REPORT FROM DAY NURSE. PT WITH NAD, NO C/O. RESTING COMFORTABLY IN BED. BED EXIT ALARM ENGAGED. SPOKE WITH PT'S DAUGHTER, RAFI, WHO CALLED FOR AN UPDATE OF PT CONDITION. WILL CONTINUE TO MONITOR AND FOLLOW POC.
--- NOTE | 2022-05-16 07:09 | NUR ---
BEDSIDE REPORT FROM JACQUELINE MALIK, PT SOMULENT, RESP RATE 38, SATS 94%, CALL LIGHT IN REACH - PT HOB UP, PALE, JACQUELINE MALIK CALLED FAMILY AFTER REPORT TO ADVISE THAT PT HAD A ROUGH NIGHT, APPEARS UNCOMFORTABLE AND IS WORKING HARD TO BREATH INSPITE OF GOOD SATS. CXR WAS UNREMARKABLE- DR AWARE. FAMILY WILL BE IN SHORTLY TO DISCUSS COMFORT CARE AND OR PLANS MOVING AHEAD.
--- NOTE | 2022-05-16 07:35 | NUR ---
PATIENT CONTINUES WITH DYSPNEA AND INCREASED WORK OF BREATHING. PHONED PT'S DAUGHTER WITH UPDATE. EDUCATED HER TO THE POSSIBILITY OF A RAPID DECLINE AT THIS POINT. INFORMED HER OF PATIENT'S CODE STATUS AND EDUCATED HER ON WHAT INTERVENTIONS WILL BE PERFORMED IN THE CASE OF RESPIRATORY ARREST OR ANY OTHER CODE BLUE SITUATION, A FULL CODE AND ALSO A DNR/DNI. . RECOMMENDED A FAMILY MEMBER COME TO THE HOSPITAL THIS MORNING TO SEE THE PATIENT AND BE AVAILABLE TO SPEAK WITH PHYSICIAN IN REGARDS TO PATIENT'S CONDITION. PT'S DAUGHTER VERBALIZED UNDERSTANDING AND STATED SHE DID NOT HAVE ANY QUESTIONS. SAME ENDORSED TO DAY NURSE.
--- NOTE | 2022-05-16 09:49 | NUR ---
pt dtg arrived and this rn explained pt status from the door as she observed his 40 resp min breathing with eyes closed. pt working very hard, bedside pulse ox 94% o2 - observed belly breathing. dtg said he had dnr from past admit - this rn called med rec. and they searched - no code status from last admit in 2017. pt has no pcp to check - this rn discussed pt with dr. hanna - she is aware that pt was un arousable and unable to take oral this am - advised the dtg is in room at this time. in to speak with dtg and see pt now.
--- NOTE | 2022-05-16 10:24 | NUR ---
CALL AND FAX TO MORGAN ORTEZ MD FOR DNR STATUS - NOTE FROM DR DODSON IN 2014 STATES THIS IS WHERE PT DIRECTIVE IS ON FILE.
--- NOTE | 2022-05-16 10:55 | NUR ---
RN IN ROOM WITH PT AND DTG RAFI - SHE HAS NOTIFIED (4) SIBLINGS THAT PT IS NO LONGER WAKING UP AND THAT HE HAS A DNR THAT SHE HAS REQUSTED US TO FIND AT [facility]. PT IV R FOOT STARTED WITH D51/2 NS 20K. PT I SOMULENT WITH BIPAP ON, ROOM CLEANED AND PREPED FOR FAMILY TO COME. DISCUSSED COVID STATUS AND NO CHILDREN IN ROOM. PT IS GRIMMICING BUT TOLLERATING THE BIPAP SO FAR.
--- NOTE | 2022-05-16 11:00 | NUR ---
Spoke with daughter, Alyssa Muhammad. Per Alyssa, pt does not want to be coded or intubated. She is awaiting call from her sister in another [place] to discuss. Other siblings are all in agreement for DNR/DNI.
--- NOTE | 2022-05-16 11:20 | NUR ---
CALL BACK FROM [facility]. THEY INDICATED THAT PATIENT HAS NO DNR PAPERS ON FILE AND HAS NOT BEEN SEEN BY THEM SINCE 2008. [facility] ALSO INDICATED THAT THERE WERE SOME OLDER PAPER RECORDS BACK EAST, BUT IT WOULD TAKE WELL OVER A WEEK TO RECIEVE THE RECORDS AND REVIEW THEM.
--- NOTE | 2022-05-16 11:59 | NUR ---
pt attends changed, minimally wet, skin wnl per ingot car operator report and pt turned. pt dtg carrillo out for lunch with family. pt still with bipap, somulent, eyes closed - attempts to pick at mask at times- resp still increased at 40
--- NOTE | 2022-05-16 13:23 | NUR ---
oral care done by rn and rt - lg amt of dry mucus at back of mouth noted, family requested oral care inspite of pt disliking the oral suction and lemon swabs. o2 sats wnl - lg amt of boogery mucus and dry secretions removed in lg chunk. pt does not open eyes or respond to commands. seems uncomfortable and agitated with care. attempted bipap again and pt pulled off - left off - family understands.
--- NOTE | 2022-05-16 14:15 | NUR ---
ATTENDS CHANGED WET, TURNED PT TO LEFT SIDE, UNCOMFORTABLE LOOKING, CALL TO DR. ZAK JUSTICE. REQUESTING COMFORT CARE - SHE HAS SPOKEN WITH SIBLINGS AND THEY REQUEST COMFORT CARE NEXT -
--- NOTE | 2022-05-16 14:44 | NUR ---
PT APPEARS AGITATED PULLING AT LINENS ETC. DTG ALERTED RN AND ASKED FOR SOMETHING TO CALM OR RELEIVE PT. 1 MG ATIVAN IV GIVEN.
--- NOTE | 2022-05-16 14:50 | NUR ---
and this state attorney with dtg michele and other family - after family discussion they have requested comfort care/dnr - polst form signed and new orders in. offered pastoral care - family receptive - notes that previously were [employer] and former preist has - open to any pastoral care visit. pt more restful after ativan, continues to rest on left side, resp even at 38
--- NOTE | 2022-05-16 15:10 | NUR ---
called prem at [facility] for consult with pt family.
--- NOTE | 2022-05-16 15:44 | NUR ---
IV MS GIVEN PER REQUEST OF DTG. PT MOANING AND RESP RATE 40 AND LABORED.
--- NOTE | 2022-05-16 17:09 | NUR ---
FAMILY AGREES PT IS NEEDING SOME PAIN MEDS, PT REPOSITIONED TO BACK.
--- NOTE | 2022-05-16 18:40 | NUR ---
DTG IN ROOM ASKING ABOUT MEDS FOR PT, REPOSITIONED TO RIGHT SIDE, HAROLDO WOOD, ATTENDS WNL. DTG EATING MEAL.
--- NOTE | 2022-05-16 19:40 | NUR ---
REPORT RECEIVED FROM DAY SHIFT RN. PT LYING IN BED WITH EYES CLOSED LYING IN RELAXED POSITION. NO APPARENT DISTRESS. FAMILY AT BEDSIDE. DENIES NEEDS AT THIS TIME.
--- NOTE | 2022-05-16 20:15 | NUR ---
PT LYING WITH EYES CLOSED. RESPIRATIONS 26 AND SLIGHTLY LABORED. PRN MORPHINE ADMIN PER EMAR. PT INCONTINENT OF LARGE AMOUNT URINE. NAOMEI CARE DONE AND CLEAN BRIEF PLACED. ORAL CARE DONE. DAUGHTER AT BEDSIDE. DENIES NEEDS.
--- NOTE | 2022-05-16 22:31 | NUR ---
IN TO REPOSITION PT WITH PILLOWS FOR COMFORT. PT RIGID AND TENSE DURING CARES. RESPIRATIONS 30 AND SLIGHTLY LABORED. PRN ADMIN PER EMAR. ORAL CARE DONE. ATTENDS DRY. DAUGHTER IN RECLINER, DENIES NEEDS. CALL LIGHT IN REACH.
--- NOTE | 2022-05-16 23:19 | NUR ---
ICE WATER AND TOILET PAPER PROVIDED.
--- NOTE | 2022-05-16 23:56 | NUR ---
ROUNDING ON PT. RESPIRATIONS UP TO 30 AND LABORED. DAUGHTER REQUESTING PRN FOR COMFORT. MORPHINE ADMIN PER ORDER. ORAL CARE DONE. ATTENDS DRY. REPOSITIONED WITH PILLOWS. NO FURTHER NEEDS.
--- NOTE | 2022-05-17 01:28 | NUR ---
DAUGHTER SITTING AT BEDSIDE. PT WITH RIGID, JERKY MOVEMENTS. BREATHING LABORED. GREEN CRUST REMOVED FROM AIRWAY WITH ORAL CARE KIT. PT REPOSITIONED TO LEFT SIDE WITH PILLOWS. BREATHING IMPROVED. SL MORPHINE ADMIN PER EMAR. DAUGHTER AGREES PT APPEARS MORE COMFORTABLE AFTER INTERVENTIONS. SNACKS AND ICE WATER PROVIDED. NO FURTHER NEEDS AT THIS TIME.
--- NOTE | 2022-05-17 02:00 | NUR ---
ADDITIONAL PRN FOR COMFORT ADMIN PER DAUGHTER REQUEST. PT WITH SLIGHTLY LABORED BREATHING. RESPIRATIONS 26. NO S/SX OF PAIN, PT LYING IN RELAXED POSITION.
--- NOTE | 2022-05-17 02:30 | NUR ---
PT RESTING IN RELAXED POSITION. RESPIRATIONS UNLABORED. DAUGHTER DENIES NEEDS.
--- NOTE | 2022-05-17 04:30 | NUR ---
0345-IN ROOM TO REPOSITION PT AND ADMINISTER PRN FOR COMFORT. ORAL CARE DONE. RESPIRATIONS 26 AND SLIGHTLY LABORED. 0411-IN TO REASSESS PT. RESPIRATIONS 32 AND LABORED WITH ACCESSORY MUSCLE USE NOTED. OCCASIONAL MOAN AND GRIMACE NOTED. PT WITH RIGID, JERKY MOVEMENTS. PRN SL MORPHINE AND IV ATIVAN ADMIN PER EMAR. PT REPOSITIONED BACK TO LEFT SIDE DAUGHTER REPORTS THAT IS HIS NORMAL SLEEPING POSITION. COFFEE PROVIDED FOR DAUGHTER. NO FURTHER NEEDS AT THIS TIME.
--- NOTE | 2022-05-17 05:22 | NUR ---
RESPIRATIONS 30. BREATHING LABORED. ACCESSORY MUSCLE USE NOTED. DAUGHTER REPORTS PT APPEARS UNCOMFORTABLE. PRN FOR COMFORT ADMIN PER EMAR.
--- NOTE | 2022-05-17 06:05 | NUR ---
RESPIRATIONS 28 AND LABORED. PRN FOR COMFORT ADMIN PER EMAR. ORAL CARE DONE WITH ORAL CARE KIT. RT IN FOR LIGHT SUCTION OF ORAL SECRETIONS. PRN FOR SECRETIONS ADMIN.
--- NOTE | 2022-05-17 07:00 | NUR ---
report from Aileen rn, pt resting in bed on left side, resp labored at 30rate. michele grandag. in room. pt eyes closed and appears more comfortable per report.
--- NOTE | 2022-05-17 08:00 | NUR ---
RN IN FOR EXTENSIVE ORAL CARE, PT SOMULENT, LOTS OF DEBRIE OUT. NO TEETH. MOISTURE PLACED. ORAL MS GIVEN AND IV ATIVAN PER FAMILY REQUEST - PT DID NOT LIKE ORAL CARE -
--- NOTE | 2022-05-17 09:10 | NUR ---
complete linen changed with multiple rolls, inc urine and smear of bm, pt uncomfortable, meds given - dtg in room, nati care done wnl allevyn on coxyxx. pt resp noisey - suction 0 sm amt of mucus.
--- NOTE | 2022-05-17 10:12 | NUR ---
dtg requested more pain meds for pt, his breathing is uneven and he moans. eyes closed, resp 40. somulent does not respond to stimuli. repositioned to left side per dtg request for comfort.
--- NOTE | 2022-05-17 11:28 | NUR ---
in room with pt and dtg, pt repositioned right side. medicated with pain meds for comfort, pt has agonal resp rate 40. dtg thankful for consult with pastoral care,
--- NOTE | 2022-05-17 12:22 | NUR ---
macie vizcaino requested anxiety and pain medication for pt, family in room, pt with short quick breaths, rapid rate, 40, pt repositioned.
--- NOTE | 2022-05-17 13:10 | NUR ---
pt dtg called staff - she thinks father has stopped breathing 13:08 - confirmed, no heart rate no resp rate, here at rn station and notified, she came in room, pastoral care was here and came in for prayer, prem leon called and here for assistance with disposistion.
--- NOTE | 2022-05-17 14:47 | NUR ---
assisted [facility] to discharge the pt to mortuary, iv r foot dc intact. attends changed and nati care done. 2 bag protocol for covid and [facility]
--- NOTE | 2022-05-17 14:55 | NUR ---
HELENA GUARDADO REQUESTED A CONSULT FOR PTS' DAUGHTER DENIS. HELPED HER WITH END OF LIFE DECISIONS. DECISION MADE TO USE [facility], CREMATION AND BURIAL AT [facility]. PROVIDED [facility] #, CONTACT AND SHEET TO LIST PHONE CONTACT NUMBERS AND NAMES. PRAYED WITH DENIS, GAVE COMFORT AND SUPPORT. WILL FOLLOW
--- NOTE | 2022-05-17 15:17 | NUR ---
KAREN GRECO INFORMED PT HAS PASSED. DAUGHTER DENIS IN , GAVE COMFORT AND CONDOLENCE. SHE ASKED TO HAVE A FEW MOMENTS, WHEN SHE WAS READY I CONTACTED [facility] AND ASSISTED WITH PAPERWORK. SN'S ASSISTED HELENA GUARDADO TO MOVE PT TO STRETCHER AND DOUBLE BAG PT. ESCORTED PT TO VEHICLE.
== END 2022-05-17 13:08 | DRG 871 ==
LOC: ED 00:35 → CCU 03:42 → MS 08:58
PROVIDERS: ADMIT Family Medicine; ATTEND Internal Medicine
PROC: 3E03329 Introduction of Other Anti-infective into Peripheral Vein, Percutaneous Approach (ICD-10-PCS; principal; 2022-05-12)
PROC: 009U3ZX Drainage of Spinal Canal, Percutaneous Approach, Diagnostic (ICD-10-PCS; 2022-05-12)
PROC: XW033E5 Introduction of Remdesivir Anti-infective into Peripheral Vein, Percutaneous Approach, New Technology Group 5 (ICD-10-PCS; 2022-05-12)
PROC: 3E0333Z Introduction of Anti-inflammatory into Peripheral Vein, Percutaneous Approach (ICD-10-PCS; 2022-05-12)
PROC: 5A09357 Assistance with Respiratory Ventilation, Less than 24 Consecutive Hours, Continuous Positive Airway Pressure (ICD-10-PCS; 2022-05-16)
DX: A41.51 Sepsis due to Escherichia coli [E. coli] (principal); I63.9 Cerebral infarction, unspecified; J18.9 Pneumonia, unspecified organism; R65.21 Severe sepsis with septic shock; U07.1 COVID-19; N17.9 Acute kidney failure, unspecified; N39.0 Urinary tract infection, site not specified; E87.0 Hyperosmolality and hypernatremia; F17.210 Nicotine dependence, cigarettes, uncomplicated; Z51.5 Encounter for palliative care; Z66 Do not resuscitate; I71.43 Infrarenal abdominal aortic aneurysm, without rupture; D69.6 Thrombocytopenia, unspecified; Z85.46 Personal history of malignant neoplasm of prostate; Z98.890 Other specified postprocedural states; Z79.82 Long term (current) use of aspirin; Z79.899 Other long term (current) drug therapy
CPT/HCPCS: 36415; 36600; 70450; 71045; 74177; 80048; 80053; 80061; 81001; 82803; 82945; 83605; 83735; 84100; 84157; 85025; 85610; 85730; 87040; 87077; 87088; 87186; 87502; 89051; 93005; 93010; 93880; 94660; 94762; A9270; J0248; J0456; J0696; J1100; J1630; J2060; J2270; J3480; J7030; J7050; J7060; J7121; Q9967; U0003